=== PATIENT | female | born 1985 | race Caucasian/White ===

== ENCOUNTER 2020-03-08 07:36 | Day surgery (SDC) | payer BC ==
[~2020-03-08] VITALS: Ht 165.1 cm; Wt 83.9 kg
[~2020-03-08 07:36] MED LIST: BIOTIN1000 MCG PO; CALCIUM 500 +1 EAC1 PO; LITHIUM CARBON450 MG PO; PROPRANOLOL HCL40 MG PO; VITAMIN D3125 MC1 PO; WELLBUTRIN XL300 MG PO
[2020-03-08] MEDS ORDERED: INDERAL LA60 MG PO (08:04)
[2020-03-08] MEDS ORDERED: EYLEA2 MG/0.05 (08:05)
--- NOTE | 2020-03-08 09:19 | NUR ---
03/08/20 0919 Sasha Mathis 0905 PATIENT ARRIVES TO PACU SLEEPING. AWAKENS WITH VERBAL STIMULI. RESP EVEN AND UNLABORED. NC AT 3 LITERS. PATIENT BACK TO SLEEP WHEN NOT STIMULATED. 09 PATIENT SLEEPING. AWAKENS WITH VERBAL STIMULI. RESPOSITIONS SELF TO BACK. RESP EVEN AND UNLABORED, OXYGEN OFF.
--- NOTE | 2020-03-08 13:57 | NUR ---
PT ASLEEP, DID NOT DISTURB
--- NOTE | 2020-03-08 19:09 | OR ---
[facility] [address], [place] [address] Signed DATE OF OPERATION: 03/08/2020 SURGEON: Johnathan Huddleston MD PREOPERATIVE DIAGNOSES: 1. Chronic intermittent diarrhea. 2. Intermittent blood with stool. POSTOPERATIVE DIAGNOSIS: Tiny external hemorrhoids. PROCEDURE: Colonoscopy with random cold biopsies. ESTIMATED BLOOD LOSS: None. INDICATIONS: Rock is a 34-year-old female asked to see me for a colonoscopy. She has had chronic intermittent diarrhea for the last 14 years. Even when she stopped her lithium, the diarrhea continued. She also sees a little blood with her bowel movements once in a while. She told me there is no family history of colon cancer, polyps or inflammatory bowel disease. She is awaiting her celiac sprue panel from her primary care provider. In the meantime, she was asked to see me for colonoscopy with biopsies. In the office, I gave Rock a pamphlet on colonoscopy. We looked at that together along with the risks including, but not limited to gas bloating, crampy abdominal pain, bleeding, perforation requiring surgery, and missed diagnosis. We also discussed the need for the IV conscious sedation. She had expressed understanding and wished to proceed. PROCEDURE NOTE: Rock was taken into our endoscopy suite and placed in the left lateral decubitus position. She was given IV sedation with 4 mg of Versed and 100 mcg of fentanyl. A digital rectal exam was performed and this was unremarkable other than tiny external hemorrhoids. The adult colonoscope was introduced and advanced under direct visualization of camera into the cecum itself. It took a little extra sedation and mild abdominal compression in order to advance the scope. She has a fairly long left and transverse colon. Her prep was quite good. We could easily see the appendiceal orifice and the ileocecal valve. We were unable to turn the camera into the terminal ileum. The scope was then slowly withdrawn. The entire colon appeared healthy and unremarkable. Specifically, no inflammatory changes. We did take several random Electronically Signed By: JOHNATHAN HUDDLESTON MD 03/08/20 1909 PATIENT NAME: ROCK DIALLO OPERATIVE REPORT DATE OF : 89 REPORT #: [id number] PHYSICIAN: JOHNATHAN HUDDLESTON MD PCP: KALA BERGER MD REPORT IS CONFIDENTIAL AND NOT TO BE RELEASED WITHOUT AUTHORIZATION [facility] [address], [place] [address] Signed biopsies for pathologic review. The rectum was unremarkable. Upon retroflexion of scope, she had just a little irritation on the one side of the anal canal. It may represent area of her intermittent blood associated with bowel movements. After this, the gas was suctioned out. The colonoscope removed. Rock tolerated the procedure quite well. RECOMMENDATIONS: I will see Rock back in my office in 7 to 14 days to review her results. Johnathan Huddleston MD ALB/MODL /[id number] cc: MD Johnathan Lopez JD, MD Copies: KALA BERGER MD, ANDREW L MD ~ Electronically Signed By: JOHNATHAN HUDDLESTON MD 03/08/20 1909 PATIENT NAME: ROCK DIALLO OPERATIVE REPORT DATE OF : 89 REPORT #: [id number] PHYSICIAN: JOHNATHAN HUDDLESTON MD PCP: KALA BERGER MD REPORT IS CONFIDENTIAL AND NOT TO BE RELEASED WITHOUT AUTHORIZATION
--- NOTE | 2020-03-09 11:45 | PATH ---
[facility] [address], [place] [address] Signed SPECIMEN(S): A COLON BIOPSY SPECIMEN SOURCE: A. COLON BIOPSY CLINICAL HISTORY: Colonoscopy; diarrhea. MICROSCOPIC DESCRIPTION: Histologic sections of all submitted blocks are examined by light microscopy. These findings, together with the gross examination, support the pathologic diagnosis. FINAL PATHOLOGIC DIAGNOSIS: Colon, biopsy: - Colonic mucosa with no histopathologic abnormality. - Negative for active, chronic, or microscopic colitis. - Negative for dysplasia or malignancy. NAL:cml:C2NR GROSS DESCRIPTION: The specimen, labeled "KW, colon biopsy," is received in formalin and consists of three douglass soft tissue fragments that measure 0.2 cm in greatest dimension. The specimen is entirely submitted in cassette (A1). JS (under the direct supervision of a pathologist) The Gross Description was prepared using a voice recognition system. The report was reviewed for accuracy; however, sound-alike word errors, addition and/or deletions may occur. If there is any question about this report, please contact Client Services. PERFORMING LABORATORY: The technical component was performed by [facility], [address] [place] [id number] (Cable Coverer: Clare Sultana MD; CLIA# [id number]). [facility] [address] [place] [id number] (CLIA# [id number]). Diagnostician: Christiana Danielle MD Pathologist Electronically Signed 03/09/2020 PATIENT NAME: ANGEL DIALLO PATHOLOGY DATE OF : 89 REPORT #: [id number] PHYSICIAN: [facility] PCP: KALA BERGER MD REPORT IS CONFIDENTIAL AND NOT TO BE RELEASED WITHOUT AUTHORIZATION [address] [place], [place] [address] Signed Copies: ~ PATIENT NAME: ANGEL DIALLO PATHOLOGY DATE OF : 89 REPORT #: [id number] PHYSICIAN: [facility] PCP: KALA BERGER MD REPORT IS CONFIDENTIAL AND NOT TO BE RELEASED WITHOUT AUTHORIZATION
== END 2020-03-08 09:50 | disposition home or self-care (01) ==
LOC: DS 07:36 → OPS 07:36 → DS 09:00 → OPS 09:50
PROVIDERS: Colon & Rectal Surgery
PROC: 0DBE8ZX Excision of Large Intestine, Via Natural or Artificial Opening Endoscopic, Diagnostic (ICD-10-PCS; principal; 2020-03-08 09:00)
DX: K64.4 Residual hemorrhoidal skin tags (principal); K52.9 Noninfective gastroenteritis and colitis, unspecified; Z79.899 Other long term (current) drug therapy
CPT/HCPCS: 84703; 99153; G0500; J2250; J3010; J7121

== ENCOUNTER 2022-05-05 04:18 | Emergency (ER) | payer BC ==
[~2022-05-05] VITALS: Ht 165.1 cm; Wt 86.7 kg
[~2022-05-05 04:18] MED LIST changes: +EYLEA2 MG/0.05; +INDERAL LA60 MG PO
[2022-05-05] MEDS ORDERED: LAMOTRIGINE100 MG PO (04:36)
[2022-05-05] MEDS ORDERED: DICYCLOMINE HCL20 MG PO (04:36)
== END 2022-05-05 05:09 | disposition home or self-care (01) ==
LOC: ED 04:18
DX: G57.02 Lesion of sciatic nerve, left lower limb (principal); Z88.1 Allergy status to other antibiotic agents
CPT/HCPCS: 20552; 99283-25; J1100

== ENCOUNTER 2022-05-06 15:50 | Emergency (ER) | payer BC ==
[~2022-05-06] VITALS: Ht 165.1 cm; Wt 86.7 kg
[~2022-05-06 15:50] MED LIST changes: +DICYCLOMINE HCL20 MG PO; +LAMOTRIGINE100 MG PO
--- OUTSIDE RECORDS SUMMARY | 2022-05-06 15:59 | XMS ---
PreManage Notification: ANGEL DIALLO [employer] Events No recent Security Events currently on file CRITERIA MET - [facility] - 2 Visits in 30 Days CARE PROVIDERS There are no care providers on record at this time. Carlos A has no Care Guidelines for this patient. [facility] (12 MO.) [facility] T[facility] NOTE: Visits indicate total known visits. ED/C VISIT TRACKING (12 MO.) [facility]06[facility]2022 15:[facility] COMPLAINT: - FLANK PAIN 05/05/2022 04:19 [facility] [place] TYPE: Emergency COMPLAINT: - L SIDE PAIN INPATIENT VISIT TRACKING (12 MO.) No inpatient visits to display in this time frame [email or web address]
== END 2022-05-06 23:32 | disposition home or self-care (01) ==
LOC: ED 15:50
DX: M54.42 Lumbago with sciatica, left side (principal); Z88.8 Allergy status to other drugs, medicaments and biological substances; Z79.899 Other long term (current) drug therapy
CPT/HCPCS: A9270; J1170